=== PATIENT | male | born 1995 | race Caucasian/White ===

== ENCOUNTER 2022-08-20 15:33 | Emergency (ER) | payer MEDICAID, SELFPAY ==
--- NOTE | ~2022-08-20 | CT_ITS ---
CT OF EXAMINATION: CT knee RT wo con DATE: 08/20/2022 18:30 INDICATION: Tibial plateau fracture. TECHNIQUE: Computed tomography (CT) of the right knee was performed without intravenous contrast. Aut omated exposure control and iterative reconstruction technique were employed. The dose-length product was 655.12 mGy-cm. COMPARISON: X-ray right knee, same date FINDINGS: Very minimally displaced oblique fracture of the proximal right tibia extending from the la teral compartment and lateral plateau, inferomedially to the cortex of the proximal and medial aspect of the tibial metaphysis. No significant cortical step-off or articular surface gap. No involvement of the tibial spine. No other fractures detected. Moderate volume lipohemarthrosis. IMPRESSION: Minimally displaced oblique fracture of the proximal right tibia, involving the lateral tibial platea u. Reviewed, dictated and finalized at location K. IMPRESSION: Minimally displaced oblique fracture of the proximal right tibia, involving the lateral tibial plateau.
--- NOTE | ~2022-08-20 | XR_ITS ---
EXAM: XR knee RT min 4V DATE: 08/20/2022 16:03 HISTORY: injury while kicking door, right knee limited rom, pain . COMPARISON: None available. FINDINGS: Normal mineralization. Oblique fracture of the proximal right tibia extending from the art icular surface of the lateral compartment/lateral plateau to the medial cortex of the proximal tibia. 2 mm cortical step-off, which appears to involve the weightbearing surface of the lateral plateau. L ikely cortical break over the medial aspect of the tibial spine. No lytic or blastic lesion. Joint sp aces are maintained. No erosion or periosteal change. Moderate volume joint fluid with fat fluid maxinee renetta IMPRESSION: Minimally displaced and likely minimally comminuted proximal right tibial fracture with i nvolvement of the lateral plateau, the tibial spine, and a 2 mm cortical step-off on the weightbearin g surface of the lateral plateau. Moderate volume lipohemarthrosis. Reviewed, dictated and finalized at location K. IMPRESSION: Minimally displaced and likely minimally comminuted proximal right tibial fracture with involvement of the lateral plateau, the tibial spine, and a 2 mm cortical step-off on the weightbearing surface of the lateral plateau. M oderate volume lipohemarthrosis.
[2022-08-20 15:34] VITALS: BP 123/77; PULSE 88; RESP 18; TEMP 36.1; O2SAT 99
[2022-08-20] MEDS: ONDANSETRON INJ 4 MG/2 ML VIAL IV PUSH (16:54)
[2022-08-20] MEDS: KETOROLAC 30 MG/ML VIAL (*BKC) IV PUSH (16:56)
[2022-08-20] MEDS: MORPHINE SULFATE (*CRX) 4 MG/ML INJ IV PUSH ×3 (16:58→19:58)
--- NOTE | 2022-08-20 17:00 | ED.LOWEXIN ---
HPI - Extremity Injury (Lower) General Chief Complaint: Extremity Injury, Lower Stated Complaint: Right knee injury/pain Time Seen by Provider: 08/20/22 16:29 Source: patient Mode of arrival: ambulatory Limitations: no limitations History of Present Illness HPI Narrative: Patient is a 27-year-old male who presents to the ED with report of right knee pain. Patient reports he was attempting to kick open a door last night and kicked with his right leg. He states he was not close enough to the door and his knee hyperextended when he made contact with the door. He complains of pain to his right knee/proximal lower leg. He states he has been unable to move his knee or ambulate whatsoever. EMS was then called today. Patient has not taken anything for pain prior to arrival. Denies any numbness or tingling. Denies any other injuries. Related Data Allergies Allergy/AdvReac Type Severity Reaction Status Date / Time No Known Allergies Allergy Verified 08/20/22 16:54 Review of Systems Review of Systems: CONSTITUTIONAL: Denies fever, chills, or sweats. MUSCULOSKELETAL: See HPI. NEUROLOGIC: Denies tingling, numbness, or weakness. All systems reviewed & are unremarkable except as noted in HPI and below Exam Narrative: GENERAL: Well appearing, well-nourished, non-toxic, in moderate acute distress d/t pain. HEAD: Normocephalic, atraumatic. NECK: Supple. No adenopathy, no masses. RESPIRATORY: Airway patent, respirations nonlabored. Clear to auscultation bilaterally, no rales, rhonchi, wheezing. CARDIOVASCULAR: Regular rate and rhythm without murmurs, rubs, or gallops. Pedal pulses 2+ and equal bilaterally. MUSCULOSKELETAL: Unable to move or bend right knee whatsoever, tenderness to palpation diffusely throughout right anterior knee, proximal lower leg. Swelling noted to anterior knee. No significant ecchymosis. Sensation intact. No significant swelling to lower leg. Compartments soft. SKIN: Warm, dry, normal color. No rashes. NEURO: A&O X3. Speech clear. Cranial nerves II-XII grossly intact. No ataxic movements. PSYCHIATRIC: Appropriate mood and affect. Normal interaction. Course Vital Signs Vital signs: Vital Signs Temperature 96.9 F L 08/20/22 15:34 Pulse Rate 88 08/20/22 15:34 Respiratory Rate 18 08/20/22 15:34 Blood Pressure 123/77 08/20/22 15:34 Pulse Oximetry 99 08/20/22 15:34 Oxygen Delivery Room Air 08/20/22 15:34 Temperature 96.9 F L 08/20/22 15:34 Pulse Rate 72 08/20/22 17:38 Respiratory Rate 16 08/20/22 17:38 Blood Pressure 126/82 08/20/22 17:38 Pulse Oximetry 98 08/20/22 17:38 Oxygen Delivery Room Air 08/20/22 15:34 MDM - Extremity Injury (Lower) MDM Narrative Medical decision making narrative: Patient presented to ED with right knee pain status post trying to stick down a door. Patient neurovascularly intact. No signs of compartment syndrome. Compartments are soft. Marked tenderness and swelling noted to right anterior knee/proximal lower leg. X-ray showing proximal tibial fx with lateral plateau fracture. Discussed case with Dr. Clements, orthopedics, requested to see imaging. After viewing XR imaging, recommend transfer. Discussed case with Dr. Crain, Ortho @ [facility], advised nonemergent for transfer at this time. Requested CT, haleigh bandage the length of his leg for compression, knee immobilizer, non-wb, and f/u in office next week. CT obtained. I did update Dr. Crain with CT findings, agrees w/ plan still. Patient given imaging discs. Pain medication sent to pharmacy. Patient given strict instructions for nonweightbearing, elevating leg, RICE therapy. Given crutches. Patient in agreement with plan. Given return precautions. Discharged in stable condition. Medical Records Attestation: I reviewed the patient's medical records. Imaging Data Attestation: I personally reviewed and interpreted this imaging study as follows: Radiologist's impression: ITS Impress
[2022-08-20] MEDS: Please add drug allergy info to patient profile. 1 EACH XX (17:03)
[2022-08-20 17:38] VITALS: BP 126/82; PULSE 72; RESP 16; O2SAT 98
== END 2022-08-20 20:17 | disposition home or self-care (01) ==
PROVIDERS: Emergency Provider Physician Assistant
DX: S82.141A Displaced bicondylar fracture of right tibia, initial encounter for closed fracture (principal); X50.9XXA Other and unspecified overexertion or strenuous movements or postures, initial encounter
CPT/HCPCS: 73564; 73700; 96374; 96375; 96376; 99284; J1885; J2270; J2405